=== PATIENT | female | born 1955 | race Hispanic/Latino ===

== ENCOUNTER → 2017-12-21 | Outpatient (CLI) | payer MEDICARE ==
[~2017-12-21] MED LIST: CIPRO500 MG PO; FLAGYL250 MG PO; NOVOLIN 70100 UNITS/ SQ; REGADENOSON 0.4 MG/5 ML SYR IV ONE; TYLENOL WITH C1 EACH PO
--- NOTE | 2017-12-22 13:45 | Cardiology Report ---
DATE OF STUDY: LEXISCAN NUCLEAR STRESS TEST INDICATION: Shortness of breath. TECHNIQUE: The patient was given 10.6 mCi of Myoview. Resting images were obtained in the horizontal long axis, vertical long axis and short axis. Patient was then hooked up to the EKG machine, and Lexiscan was infused over 15 seconds. During Lexiscan infusion, the patient had no symptoms. Immediately after completion of Lexiscan injection, the patient was given 31 mCi of Myoview. Stress images were obtained 30 minutes after completion of Lexiscan infusion. Stress images were obtained in the horizontal long axis, vertical long axis and short axis. RESULTS 1. The resting EKG demonstrated normal sinus rhythm with some nonspecific ST-T wave changes. 2. There were no EKG changes and no symptoms during Lexiscan infusion. 3. There was normal perfusion to all segments of the myocardium in both stress and rest. 4. There was normal left ventricular size and function with an ejection fraction of 71%. CONCLUSIONS: The patient has no evidence of myocardial ischemia. There is normal perfusion to all segments of the myocardium in both stress and rest. The ejection fraction was 71%. Job#: [id number]
== END ==
LOC: NM 09:49
PROVIDERS: ATTEND Internal Medicine Cardiovascular Disease
DX: I10 Essential (primary) hypertension (principal)
CPT/HCPCS: 36415; 78452; 82948; 93017; A9502